=== PATIENT | female | born 1995 | race Caucasian/White ===

== ENCOUNTER 2019-10-09 21:21 | Emergency (ER) | payer SELFPAY ==
[~2019-10-09] VITALS: Ht 170.2 cm; Wt 62.0 kg
[2019-10-09] MEDS ORDERED: ACETAMINOPHEN 500MG TABLET PO ONE (22:45)
[2019-10-09] MEDS ORDERED: SODIUM CHLORIDE 0.9% 1,000 ML IV ONE (22:45)
[2019-10-09] MEDS ORDERED: ONDANSETRON 4MG ODT PO ONE (22:45)
[2019-10-09 23:34] LABS: CHLORIDE 105 mEq/L (98-107)
[2019-10-09 23:36] LABS: BASOPHILS % 0.3 % (0.0-2.0); EOSINOPHILS % 0.5 % (0.0-5.0); HEMATOCRIT. 35.8 % (36.0-48.0); HEMOGLOBIN. 12.7 g/dL (12.0-16.0); LYMPHOCYTES % 27.1 % (20.0-50.0); MEAN CORPUSCULAR HEMOGLOBIN 32.7 pg (28.0-32.0); MEAN PLATELET VOLUME 9.5 fl (7.4-10.4); MONOCYTES % 8.1 % (2.0-8.0); PLATELET 173 x1000/uL (130-400); RED CELL DISTRIBUTION WIDTH 13.4 % (11.6-14.6)
[2019-10-10] VITALS: BP 113/78
[2019-10-10 00:41] LABS: CLARITY URINE CLEAR (CLEAR); COLOR URINE YELLOW (YELLOW); KETONES URINE NEGATIVE (NEGATIVE); LEUKOCYTE ESTERASE URINE NEGATIVE (NEGATIVE); NITRITE URINE NEGATIVE (NEGATIVE); OCCULT BLOOD URINE NEGATIVE (NEGATIVE); PH URINE 7.5 (4.5-8.0); PROTEIN URINE NEGATIVE (NEGATIVE); SPECIFIC GRAVITY URINE 1.011 (1.005-1.030); UROBILINOGEN URINE 0.2 E.U./dL (0.2-1.0)
== END 2019-10-10 01:55 | disposition home or self-care (01) ==
LOC: ER 21:21
DX: O26.892 Other specified pregnancy related conditions, second trimester (principal); K59.00 Constipation, unspecified; R10.30 Lower abdominal pain, unspecified; R51 Headache; R11.0 Nausea; R53.1 Weakness; Z3A.14 14 weeks gestation of pregnancy
CPT/HCPCS: 36415; 76805; 80053; 81003; 81025; 83690; 85025; 86850; 86900; 86901; 96360; 99284; J7030; Q0162